=== PATIENT | male | born 1985 | race Two or more races ===

== ENCOUNTER 2022-09-30 22:50 | Inpatient (IN) | payer OTHER ==
[~2022-09-30] VITALS: Ht 188 cm; Wt 96.5 kg
[2022-09-30 23:11] VITALS: PULSE 66; RESP 20; O2SAT 94
[2022-10-01 01:09] LABS: Urine Bacteria NONE SEEN /hpf (None Seen); Urine Blood Negative /uL (Negative); Urine Clarity Clear (Clear); Urine Color Colorless (Yellow); Urine Protein, UAD Negative (Negative); Urine Specific Gravity 1.007 (1.001-1.035); Urine Urobilinogen Normal (Negative); Urine WBC <1 /hpf (0 - 3); Urine pH 7.5 (5.0-8.0)
[2022-10-01] MEDS ORDERED: NITROGLYCERIN 0.4 MG SL TAB SL PRN (03:45)
[2022-10-01] MEDS ORDERED: TAMSULOSIN HYDROCHLORIDE 0.4 MG CAP PO ONE (03:45)
[2022-10-01] MEDS ORDERED: MORPHINE SULFATE INJ 2 MG/ml SYRG IV PRN (03:45)
[2022-10-01] MEDS ORDERED: ONDANSETRON HCL 4 MG/2 ML VIAL IV PRN (03:45)
[2022-10-01] MEDS: IBUPROFEN 800 MG TAB PO PRN (04:03)
[2022-10-01 08:15] VITALS: PULSE 61; RESP 20; O2SAT 94
[2022-10-01] MEDS: TAMSULOSIN HYDROCHLORIDE 0.4 MG CAP PO SCH (11:01)
[2022-10-01] MEDS: ENOXAPARIN SOD 40 MG/0.4 ML SYRINGE SC SCH (11:01)
[2022-10-01] MEDS ORDERED: BUPR75TA96 PO (12:50)
[2022-10-01] MEDS ORDERED: LEVE250T18 PO (12:50)
[2022-10-01] MEDS ORDERED: CARB200T4 PO (12:50)
[2022-10-01 12:53] VITALS: BP 128/95; PULSE 83; RESP 16; TEMP 97.9; O2SAT 98
[2022-10-01 13:00] VITALS: BP 128/95; PULSE 83; RESP 16; TEMP 97.9; O2SAT 98
[2022-10-01] MEDS: traMADol HCL 50 MG TAB PO PRN ×2 (13:51→21:29)
[2022-10-01] MEDS ORDERED: levETIRAcetam 500 MG TAB PO ONE (14:45)
[2022-10-01 14:59] LABS: Basophils # (auto) 0 10 ^3/uL (0-0.2); Basophils % (auto) 0.6 % (0.0-2.0); Eosinophils # (auto) 0.2 10 ^3/uL (0-0.8); Eosinophils % (auto) 3.2 % (0.0-7.0); Hematocrit 43.6 % (41.0-53.0); Hemoglobin 14.7 g/dL (13.5-17.5); Lymphocytes # (auto) 1.4 10 ^3/uL (0.4-5.4); Lymphocytes % (auto) 28.8 % (10.0-50.0); Mean Corpuscular Hemoglobin 30.8 pg (28.0-32.0); Mean Corpuscular Hgb Conc. 33.8 g/dL (32.0-36.0); Mean Corpuscular Volume 91.2 fL (80.0-100.0); Monocytes # (auto) 0.3 10 ^3/uL (0-1.3); Monocytes % (auto) 5.3 % (0.0-12.0); Neutrophils % (auto) 62.1 % (37.0-80.0); Nucleated Red Blood Cells % 0.1 %; Red Blood Cells 4.78 10^6/uL (4.5-5.90); Red Cell Distribution Width 12.7 % (11.8-14.3); White Blood Cell 4.9 10^3/uL (4.4-10.8)
[2022-10-01 15:18] LABS: Chloride 105 mmol/L (98-107); Sodium 138 mmol/L (136-145)
[2022-10-01 15:19] LABS: Anion Gap 4.7 (5-15); Calcium 9.5 mg/dL (8.7-10.4); Carbon Dioxide 28.3 mmol/L (20-30)
[2022-10-01 15:21] LABS: Amphetamine Screen, Urine Neg (NEGATIVE)
[2022-10-01 15:22] LABS: Barbiturate Scree,Urine Neg (NEGATIVE); Benzodiazephine Screen, Urine Neg (NEGATIVE); Cocaine Screen, Urine Neg (NEGATIVE); Opiate Scree,Urine Neg (NEGATIVE)
[2022-10-01 15:23] LABS: Cannabinoid Screen, Urine Neg (NEGATIVE); Phencyclidine Screen, Urine Neg (NEGATIVE)
[2022-10-01 15:24] LABS: BUN/Creatinine Ratio 5.9 (10.0-20.0); Blood Urea Nitrogen 6 mg/dL (9-23); Glucose 94 mg/dL (74-106); INR 1.11 (0.9-1.15); Partial Thromboplastin Time 32.2 SEC (24.5-34.5); Prothrombin Time 11.6 sec (9.3-11.8)
[2022-10-01 17:00] VITALS: BP 141/81; PULSE 74; RESP 16; TEMP 97.9; O2SAT 96
[2022-10-01 20:00] VITALS: BP 130/75; PULSE 76; RESP 16; TEMP 97.9; O2SAT 97
[2022-10-01] MEDS: DOCUSATE SOD 100 MG CAP PO SCH (21:26)
[2022-10-01] MEDS: levETIRAcetam 500 MG TAB PO SCH (21:27)
[2022-10-01] MEDS: CIPROFLOXACIN HCL 500 MG TAB PO SCH (21:27)
[2022-10-01] MEDS: OXcarbazepine 300 MG TAB PO SCH (21:28)
[2022-10-01 22:00] VITALS: BP 130/75; PULSE 76; RESP 16; TEMP 97.9; O2SAT 97
[2022-10-02] VITALS (7 sets, daily range): BP systolic 104–134; BP diastolic 50–75; PULSE 67–76; RESP 16–20; TEMP 97.5–98; O2SAT 95–99
[2022-10-02 05:58] LABS: Chloride 106 mmol/L (98-107); Potassium 3.7 mmol/L (3.5-5.1); Sodium 140 mmol/L (136-145)
[2022-10-02 05:59] LABS: Calcium 9.1 mg/dL (8.5-10.1)
[2022-10-02 06:04] LABS: BUN/Creatinine Ratio 14.9 (10.0-20.0); Blood Urea Nitrogen 14 mg/dL (9-23); Glucose 88 mg/dL (74-106)
[2022-10-02 06:14] LABS: Basophils # (auto) 0 10 ^3/uL (0-0.2); Basophils % (auto) 0.9 % (0.0-2.0); Eosinophils # (auto) 0.2 10 ^3/uL (0-0.8); Eosinophils % (auto) 3.4 % (0.0-7.0); Hematocrit 41.1 % (41.0-53.0); Hemoglobin 14.1 g/dL (13.5-17.5); Lymphocytes # (auto) 2.3 10 ^3/uL (0.4-5.4); Mean Corpuscular Hgb Conc. 34.4 g/dL (32.0-36.0); Mean Corpuscular Volume 90.1 fL (80.0-100.0); Monocytes # (auto) 0.4 10 ^3/uL (0-1.3); Monocytes % (auto) 7.7 % (0.0-12.0); Neutrophils # (auto) 2.3 10 ^3/uL (1.6-8.6); Nucleated Red Blood Cells % 0.1 %; Red Blood Cells 4.56 10^6/uL (4.5-5.90); Red Cell Distribution Width 12.7 % (11.8-14.3); White Blood Cell 5.3 10^3/uL (4.4-10.8)
[2022-10-02] MEDS: TAMSULOSIN HYDROCHLORIDE 0.4 MG CAP PO SCH (10:33)
[2022-10-02] MEDS: levETIRAcetam 500 MG TAB PO SCH ×2 (10:34→21:48)
[2022-10-02] MEDS: CIPROFLOXACIN HCL 500 MG TAB PO SCH ×2 (10:34→21:48)
[2022-10-02] MEDS: DOCUSATE SOD 100 MG CAP PO SCH ×2 (10:34→21:47)
[2022-10-02] MEDS: OXcarbazepine 300 MG TAB PO SCH ×2 (10:34→21:48)
[2022-10-02] MEDS: ENOXAPARIN SOD 40 MG/0.4 ML SYRINGE SC SCH (10:35)
[2022-10-02] MEDS: traMADol HCL 50 MG TAB PO PRN ×2 (10:47→19:57)
[2022-10-02] MEDS: IBUPROFEN 800 MG TAB PO PRN (22:00)
[2022-10-03 05:00] VITALS: BP 114/71; PULSE 67; RESP 20; TEMP 97.5; O2SAT 98
[2022-10-03] MEDS: traMADol HCL 50 MG TAB PO PRN ×3 (05:09→18:16)
[2022-10-03 08:50] VITALS: BP 118/63; PULSE 69; RESP 15; TEMP 97.9; O2SAT 96
[2022-10-03] MEDS: DOCUSATE SOD 100 MG CAP PO SCH ×2 (09:41→21:26)
[2022-10-03] MEDS: ENOXAPARIN SOD 40 MG/0.4 ML SYRINGE SC SCH (09:41)
[2022-10-03] MEDS: OXcarbazepine 300 MG TAB PO SCH ×2 (09:41→21:27)
[2022-10-03] MEDS: CIPROFLOXACIN HCL 500 MG TAB PO SCH ×2 (09:41→21:27)
[2022-10-03] MEDS: levETIRAcetam 500 MG TAB PO SCH ×2 (09:41→21:27)
[2022-10-03] MEDS: TAMSULOSIN HYDROCHLORIDE 0.4 MG CAP PO SCH (09:42)
[2022-10-03] MEDS: IBUPROFEN 800 MG TAB PO PRN ×2 (09:46→22:29)
[2022-10-03 12:43] VITALS: BP 113/64; PULSE 74; RESP 15; TEMP 98.1; O2SAT 97
[2022-10-03 16:36] VITALS: BP 112/68; PULSE 72; RESP 15; TEMP 97.9; O2SAT 98
[2022-10-03 20:00] VITALS: RESP 18
[2022-10-03 22:00] VITALS: BP 124/77; PULSE 64; RESP 18; TEMP 98.1; O2SAT 97
[2022-10-04] MEDS: traMADol HCL 50 MG TAB PO PRN ×2 (00:15→08:19)
[2022-10-04 05:00] VITALS: BP 116/76; PULSE 63; RESP 18; TEMP 98.3; O2SAT 98
[2022-10-04] MEDS: OXcarbazepine 300 MG TAB PO SCH ×2 (08:19→21:13)
[2022-10-04] MEDS: DOCUSATE SOD 100 MG CAP PO SCH ×2 (08:19→21:13)
[2022-10-04] MEDS: ENOXAPARIN SOD 40 MG/0.4 ML SYRINGE SC SCH (08:19)
[2022-10-04] MEDS: CIPROFLOXACIN HCL 500 MG TAB PO SCH ×2 (08:19→21:13)
[2022-10-04] MEDS: TAMSULOSIN HYDROCHLORIDE 0.4 MG CAP PO SCH (08:19)
[2022-10-04] MEDS: levETIRAcetam 500 MG TAB PO SCH ×2 (08:19→21:13)
[2022-10-04 09:03] VITALS: BP 111/69; PULSE 72; RESP 16; TEMP 98.1; O2SAT 95
[2022-10-04] MEDS: LACTULOSE 20Gm/30ML SOLN PO SCH ×2 (12:23→18:08)
[2022-10-04 12:43] VITALS: BP 123/72; PULSE 69; RESP 15; TEMP 97.8; O2SAT 100
[2022-10-04] MEDS: HYDROcodone-ACET 10/325MG TAB PO PRN ×3 (14:05→22:25)
[2022-10-04 16:50] VITALS: BP 137/79; PULSE 59; RESP 15; TEMP 97.9; O2SAT 98
[2022-10-04 20:00] VITALS: RESP 18
[2022-10-04 22:00] VITALS: BP 131/80; PULSE 62; RESP 20; TEMP 98.4; O2SAT 100
[2022-10-05] MEDS: LACTULOSE 20Gm/30ML SOLN PO SCH ×5 (01:00→18:00)
[2022-10-05 05:00] VITALS: BP 121/72; PULSE 74; RESP 18; TEMP 97.5; O2SAT 98
[2022-10-05] MEDS: HYDROcodone-ACET 10/325MG TAB PO PRN ×3 (05:58→14:34)
[2022-10-05 08:48] VITALS: BP 93/46; PULSE 68; RESP 15; TEMP 98; O2SAT 97
[2022-10-05] MEDS: ENOXAPARIN SOD 40 MG/0.4 ML SYRINGE SC SCH (09:27)
[2022-10-05] MEDS: TAMSULOSIN HYDROCHLORIDE 0.4 MG CAP PO SCH (09:27)
[2022-10-05] MEDS: OXcarbazepine 300 MG TAB PO SCH (09:27)
[2022-10-05] MEDS: DOCUSATE SOD 100 MG CAP PO SCH (09:27)
[2022-10-05] MEDS: levETIRAcetam 500 MG TAB PO SCH (09:28)
[2022-10-05] MEDS: CIPROFLOXACIN HCL 500 MG TAB PO SCH (09:33)
[2022-10-05 12:22] VITALS: BP 107/54; PULSE 65; RESP 16; TEMP 97.9; O2SAT 96
[2022-10-05 16:27] VITALS: BP 114/57; PULSE 57; RESP 16; TEMP 98.7; O2SAT 97
[2022-10-05] MEDS ORDERED: DOCU-265 PO (18:15)
[2022-10-05] MEDS ORDERED: TAMS-35 PO (18:15)
[2022-10-05] MEDS ORDERED: LACT10SO3 PO (18:15)
[2022-10-05] MEDS ORDERED: CIP500T PO (18:15)
[2022-10-05 18:23] VITALS: TEMP 37.1
== END 2022-10-05 18:56 | DRG 726 ==
LOC: ER 22:50 → EEVIPCON 22:50 → OVERFLOW 10-01 03:43 → WEST WING 10-01 11:55
PROVIDERS: ADMIT Internal Medicine; ATTEND Internal Medicine
DX: N40.1 Benign prostatic hyperplasia with lower urinary tract symptoms (principal); K59.00 Constipation, unspecified; R33.8 Other retention of urine; Z87.891 Personal history of nicotine dependence; Z79.899 Other long term (current) drug therapy; R56.9 Unspecified convulsions
CPT/HCPCS: 36415; 74018; 76775; 80048; 80307; 81001; 85025; 85610; 85730; 87081; 87086; 96372; G0378; J2405